=== PATIENT | female | born 1975 | race Caucasian/White ===

== ENCOUNTER 2018-04-02 23:15 | Emergency (ER) | payer BC, OTHER ==
[2018-04-02 23:26] VITALS: BP 156/101; PULSE 85; RESP 18; TEMP 98.7; O2SAT 99
[2018-04-02] MEDS ORDERED: WELLTAB39 PO (23:51)
[2018-04-02] MEDS ORDERED: CART120C PO (23:51)
[2018-04-02] MEDS ORDERED: LEVO50TA4 PO (23:51)
[2018-04-02] MEDS ORDERED: SERT-132 PO (23:51)
[2018-04-02] MEDS ORDERED: HYDR12.57 PO (23:51)
[2018-04-02] MEDS ORDERED: LISI10TA3 PO (23:51)
[2018-04-02] MEDS ORDERED: METO25TA3 PO (23:51)
[2018-04-03] MEDS ORDERED: SODIUM CHLORIDE 0.9% FLUSH 10 ML FLUSH IV FLUSH PRN (00:30)
[2018-04-03] MEDS ORDERED: ONDANSETRON ODT 4 MG TAB PO ONE (00:30)
[2018-04-03] MEDS ORDERED: KETOROLAC TROMETHAMINE 30 MG/ML (IVP) VIAL IVP ONE (00:30)
[2018-04-03 00:31] LABS: BACTERIA, URINE RARE /hpf; BILIRUBIN, URINE NEG (NEG); BLOOD, URINE SMALL (NEG); GLUCOSE,URINE NEG (NEG); HYALINE CAST, URINE 9 /lpf (RARE); KETONE, URINE NEG (NEG); MUCUS URINE FEW /lpf (OCC); NITRITE,URINE NEG (NEG); SQUAMOUS EPITHELIAL CELL URINE 2 /hpf (0-5); URINE COLOR YELLOW (YELLW/STRAW); URINE LEUKOCYTE ESTERASE NEG (NEG); WAXY CAST, URINE 3 /lpf
--- NOTE | 2018-04-03 00:58 | PD ---
HPI Chief Complaint: Complaint Time Seen by Provider: 23:49 Travel History International Travel<30 days: No Contact w/Intl Traveler<30days: No Traveled to known affect area: No History of Present Illness HPI Patient 42-year-old female presents emergency department with right lower quadrant abdominal pain has been present for about a week and got fairly constant yesterday. States mild nausea without vomiting but has endorsed diarrhea without any bloody stool or melanotic stools. No fevers no cough no congestion. No dysuria no vaginal bleeding or vaginal discharge. States symptoms are moderate, initially intermittent and now constant, right lower quadrant, no radiation. PFSH Past Medical History Anxiety: Yes Diminished Hearing: No ?: Not Past Surgical History Cholecystectomy: Yes Social History Alcohol Use: Yes (RARE) Tobacco Use: No Substance Use: No Allergies-Medications (Allergen,Severity, Reaction): Coded Allergies: No Known Allergies (Unverified , 04/02/18) Reported Meds & Prescriptions Reported Meds & Active Scripts Active Bentyl (Dicyclomine HCl) 10 Mg Cap 10 Mg PO TID PRN Zofran Odt (Ondansetron Odt) 4 Mg Tab 4 Mg SL Q6HR PRN Flagyl (Metronidazole) 500 Mg Tab 500 Mg PO BID 7 Days Cipro (Ciprofloxacin HCl) 500 Mg Tab 500 Mg PO BID 7 Days Reported Hydrochlorothiazide 12.5 Mg Cap 12.5 Mg PO DAILY Cartia Xt (Diltiazem ER 24 HR) 120 Mg Caper Unknown Dose PO DAILY Wellbutrin Xl 24 HR (Bupropion HCl) 300 Mg Tab 300 Mg PO DAILY Levothyroxine (Levothyroxine Sodium) 50 Mcg Tab 50 Mcg PO DAILY Sertraline (Sertraline HCl) 50 Mg Tab 150 Mg PO DAILY Metoprolol Tartrate 25 Mg Tab 25 Mg PO BID Lisinopril 10 Mg Tab 20 Mg PO DAILY Review of Systems Except as stated in HPI: all other systems reviewed are Neg Physical Exam Narrative GENERAL: Well-developed morbidly obese female in no obvious distress SKIN: Focused skin assessment warm/dry. HEAD: Atraumatic. Normocephalic. EYES: Pupils equal and round. No scleral icterus. No injection or drainage. ENT: No nasal bleeding or discharge. Mucous membranes pink and moist. NECK: Trachea midline. No JVD. CARDIOVASCULAR: Regular rate and rhythm. No murmur appreciated. RESPIRATORY: No accessory muscle use. Clear to auscultation. Breath sounds equal bilaterally. GASTROINTESTINAL: Abdomen soft, moderately tender in the right lower quadrant without any rebound or percussive tenderness. Psoas and obturator signs negative. nondistended. Hepatic and splenic margins not palpable. No CVA tenderness MUSCULOSKELETAL: No obvious deformities. No clubbing. No cyanosis. No edema. NEUROLOGICAL: Awake and alert. No obvious cranial nerve deficits. Motor grossly within normal limits. Normal speech. PSYCHIATRIC: Appropriate mood and affect; insight and judgment normal. Data Data Last Documented VS Vital Signs Date Time Temp Pulse Resp B/P (MAP) Pulse Ox O2 Delivery O2 Flow Rate FiO2 04/02/18 23:26 98.7 85 18 156/101 (119) 99 Orders Orders Urinalysis - C+S If Indicated (04/02/18 23:34) Ed Urine Pregnancytest Poc (04/02/18 23:34) Complete Blood Count With Diff (04/03/18 00:26) Comprehensive Metabolic Panel (04/03/18 00:26) Lipase (04/03/18 00:26) Iv Access Insert/Monitor (04/03/18 00:26) Ecg Monitoring (04/03/18 00:26) Oximetry (04/03/18 00:26) Sodium Chloride 0.9% Flush (Ns Flush) (04/03/18 00:30) Ketorolac Inj (Toradol Inj) (04/03/18 00:30) Ondansetron Odt (Zofran Odt) (04/03/18 00:30) Ct Abd/Pel W Iv Contrast(Rout) (04/03/18 ) Iohexol 350 Inj (Omnipaque 350 Inj) (04/03/18 01:12) Ed Discharge Order (04/03/18 02:29) Labs Laboratory Tests Test 04/02/18 23:45 04/03/18 00:35 04/03/18 01:20 Urine Color YELLOW Urine Turbidity HAZY Urine pH 5.0 Urine Specific [place] 1.021 Urine Protein NEG mg/dL Urine Glucose (UA) NEG mg/dL Urine Ketones NEG mg/dL Urine Occult Blood SMALL Urine Nitrite NEG Urine Bilirubin NEG Urine Urobilinogen LESS THAN 2 mg/dL Urine Leukocyte Esterase NEG Urine RBC 1 /hpf Urine WBC 2 /hpf Urine Squamous Epithelial Cells 2 /hpf Urine Bacteria RARE /hpf Urine Hyaline Casts 9 /lpf Urine Granular Casts 1 /lpf Urine Waxy Casts 3 /lpf Urine Mucus FEW /lpf Microscopic Urinalysis Comment CULT NOT INDICATED Blood Urea Nitrogen 18 MG/DL Creatinine 1.05 MG/DL Random Glucose 147 MG/DL Total Protein 7.4 GM/DL Albumin 3.6 GM/DL Calcium Level 8.9 MG/DL Alkaline Phosphatase 93 U/L Aspartate Amino Transf (AST/SGOT) 16 U/L Alanine Aminotransferase (ALT/SGPT) 25 U/L Total Bilirubin 0.3 MG/DL Sodium Level 140 MEQ/L Potassium Level 4.0 MEQ/L Chloride Level 108 MEQ/L Carbon Dioxide Level 21.3 MEQ/L Anion Gap 11 MEQ/L Estimat Glomerular Filtration Rate 57 ML/MIN Lipase 162 U/L White Blood Count 8.7 TH/MM3 Red Blood Count 4.15 MIL/MM3 Hemoglobin 12.0 GM/DL Hematocrit 35.7 % Mean Corpuscular Volume 86.0 FL Mean Corpuscular Hemoglobin 28.9 PG Mean Corpuscular Hemoglobin Concent 33.6 % Red Cell Distribution Width 13.4 % Platelet Count 224 TH/MM3 Mean Platelet Volume 7.7 FL Neutrophils (%) (Auto) 58.3 % Lymphocytes (%) (Auto) 30.7 % Monocytes (%) (Auto) 8.4 % Eosinophils (%) (Auto) 1.8 % Basophils (%) (Auto) 0.8 % Neutrophils # (Auto) 5.1 TH/MM3 Lymphocytes # (Auto) 2.7 TH/MM3 Monocytes # (Auto) 0.7 TH/MM3 Eosinophils # (Auto) 0.2 TH/MM3 Basophils # (Auto) 0.1 TH/MM3 CBC Comment DIFF FINAL Differential Comment MDM Medical Decision Making Medical Screen Exam Complete: Yes Emergency Medical Condition: Yes Differential Diagnosis Enteritis, appendicitis, kidney stone, UTI, Narrative Course Patient room to the emergency department, she appears well and quite pleasant in no obvious distress. Patient's labs are reassuring but she does have some tenderness right lower quadrant appendicitis remains on the differential diagnosis, CAT scan obtained which does show some mild inflammation of the right lower quadrant probably at the terminal ileum. This would represent a terminal ileitis and I think it explained her symptoms nicely. Discussed with the patient symptomatic management return to ED criteria follow-up with a primary care physician and feather boner for consideration of colonoscopy in the near future. She is stable for discharge. Diagnosis Primary Impression: Enteritis Med/Other Pt SpecificInfo: Prescription(s) given Scripts Dicyclomine (Bentyl) 10 Mg Cap 10 MG PO TID Y for ABDOMINAL CRAMPING, #20 CAP 0 Refills Prov: Garland Cuba MD 04/03/18 Ondansetron Odt (Zofran Odt) 4 Mg Tab 4 MG SL Q6HR Y for Nausea/Vomiting, #30 TAB 0 Refills Prov: Garland Cuba MD 04/03/18 Metronidazole (Flagyl) 500 Mg Tab 500 MG PO BID for Infection for 7 Days, #14 TAB 0 Refills Prov: Garland Cuba MD 04/03/18 Ciprofloxacin (Cipro) 500 Mg Tab 500 MG PO BID for Infection for 7 Days, #14 TAB 0 Refills Prov: Garland Cuba MD 04/03/18 Disposition: 01 DISCHARGE HOME Condition: Stable Garland Cuba MD Apr 03, 2018 00:58
[2018-04-03] MEDS ORDERED: IOHEXOL 350 MG/ML 10 ML VIAL (for RAD DIAG) IVCONTRAST ONE (01:12)
[2018-04-03 01:33] LABS: ALBUMIN 3.6 GM/DL (3.4-5.0); ALT (GPT) 25 U/L (10-53); AST (GOT) 16 U/L (15-37); BICARBONATE 21.3 MEQ/L (21.0-32.0); BLOOD UREA NITROGEN 18 MG/DL (7-18); CALCIUM 8.9 MG/DL (8.5-10.1); CHLORIDE 108 MEQ/L (98-107); CREATININE 1.05 MG/DL (0.50-1.00); GLOMERULAR FILTRATION RATE 57 ML/MIN (>89); GLUCOSE,RANDOM 147 MG/DL (74-106); SODIUM (NA) 140 MEQ/L (136-145)
[2018-04-03 01:35] LABS: ALKALINE PHOSPHATASE 93 U/L (45-117); TOTAL BILIRUBIN ADULT 0.3 MG/DL (0.2-1.0); TOTAL PROTEIN 7.4 GM/DL (6.4-8.2)
[2018-04-03 01:53] LABS: AUTOMATED NEUTROPHIL # 5.1 TH/MM3 (1.8-7.7); BASOPHIL # 0.1 TH/MM3 (0-0.2); BASOPHIL % 0.8 % (0.0-2.0); EOSINOPHIL # 0.2 TH/MM3 (0-0.4); EOSINOPHIL % 1.8 % (0.0-4.0); HEMATOCRIT 35.7 % (35.0-46.0); LYMPH % 30.7 % (9.0-44.0); LYMPHOCYTE # 2.7 TH/MM3 (1.0-4.8); MEAN CORPUSCULAR HEMOGLOBIN 28.9 PG (27.0-34.0); MEAN CORPUSCULAR HGB CONC 33.6 % (32.0-36.0); MEAN PLATELET VOLUME 7.7 FL (7.0-11.0); MONO % 8.4 % (0.0-8.0); MONOCYTE # 0.7 TH/MM3 (0-0.9); NEUT % 58.3 % (16.0-70.0); PLATELET COUNT 224 TH/MM3 (150-450); RED BLOOD COUNT 4.15 MIL/MM3 (4.00-5.30); RED CELL DISTRIBUTION WIDTH 13.4 % (11.6-17.2); WHITE BLOOD COUNT 8.7 TH/MM3 (4.0-11.0)
--- NOTE | 2018-04-03 02:13 | RADRPT ---
EXAM DATE: 04/03/2018 1:21 AM EDT AGE/SEX: 42 years / Female INDICATIONS: Right sided abdominal pain. CLINICAL DATA: This is the patient's initial encounter. Patient reports that signs and symptoms have been present for 3 days and indicates a pain score of 8/10. MEDICAL/SURGICAL HISTORY: None. None. ORAL CONTRAST: No oral contrast ingested. RADIATION DOSE: 27.11 CTDI (mGy) ; Patient body habitus COMPARISON: No prior exams available for comparison. TECHNIQUE: Multiple contiguous axial images were obtained through the abdomen and pelvis following b olus infusion of 93 ml Omnipaque 350 (iohexol) nonionic water-soluble contrast as a single exam dos e. No oral contrast ingested. Using automated exposure control and adjustment of the mA and/or kV ac cording to patient size, the radiation dose was kept as low as reasonably achievable to obtain optima l diagnostic quality images. FINDINGS: Lower Lungs: The visualized lower lungs are clear. Liver: The liver has a homogeneous density without space-occupying lesion. Cholecystectomy clips. The re is no dilation of the biliary tree. Spleen: Homogeneous density without enlargement. Pancreas: Unremarkable without mass or calcification. Kidneys: Normal in size and shape. No evidence of mass or hydronephrosis. Adrenal Glands: Unremarkable. Aorta: The aorta and proximal iliac vessels are grossly unremarkable without aneurysmal dilation. Bowel/Mesentery: Inflammatory changes of the terminal ileum. Appendix is normal. Abdominal Wall: Intact. Retroperitoneum: No evidence of adenopathy in the retrocrural, para-aortic, or deep pelvic regions. Bladder: Contours are smooth. Reproductive Organs: No abnormal masses or calcifications seen. Inguinal: The inguinal region is unremarkable without evidence of adenopathy. Bony Structures: Unremarkable. CONCLUSION: 1. There are some inflammatory changes in the terminal ileum. 2. Status post cholecystectomy. 3. Normal appendix. Electronically signed by: Bennie Rice MD 04/03/2018 2:12 AM EDT
[2018-04-03] MEDS ORDERED: METR-1 PO (02:18)
[2018-04-03] MEDS ORDERED: DICY10 PO (02:18)
[2018-04-03] MEDS ORDERED: CIPR-9 PO (02:18)
[2018-04-03] MEDS ORDERED: ZOFR4TAB3 SL (02:18)
== END 2018-04-03 02:48 | disposition home or self-care (01) ==
LOC: NEPE 23:15
DX: K52.9 Noninfective gastroenteritis and colitis, unspecified (principal)
CPT/HCPCS: 74177; 80053; 81001; 83690; 84703; 85025; 96374; 99284; J1885; Q9967